=== PATIENT | female | born 1945 | race Caucasian/White ===

== ENCOUNTER 2016-06-17 06:26 | Inpatient (IN) | payer OTHER, BC ==
[~2016-06-17] VITALS: Ht 157.5 cm; Wt 115.4 kg
[~2016-06-17 06:26] MED LIST: ALLEGRA ALLERG180 MG PO; ALPHAGAN P100 DROP/5 BOTH EYES; APRESOLINE25 MG PO; ASCORBIC ACID500 M3 PO; ASPIRIN EC325 MG PO; AZELASTINE137 MCG/0. BOTH NARES; AZO CRANBERRY250 MG PO; BACTRIM,SEPT1 TABLET PO; BIOTIN10000 MCG PO; BIOTIN2500 MCG PO; BIOTIN800 MCG PO; Biotin PO; CARDURA4 MG PO; CINNABETIC1 CAPSUL1 PO; CINNAMON PO; CINNAMON500 MG PO; CLINDAMYCIN HC300 MG PO; CO Q-10200 MG PO; COLACE100 MG PO; COLACE50 MG PO; CONSTULOSE10 GM/15 M PO; COQ PO; CRANBERRY300 MG PO; CYANOCOBALAM1000 MCG PO; CYMBALTA30 MG PO; Cranberry PO; DHA100 MG PO; DULERA 100 MCG/13 GM IH; ESTROGEN-METHY1 EAC2 PO; ESTROGEN-METHY1 EAC3 PO; FISH OIL 1,2001 EAC4 PO; FISH OIL300 MG PO; FLEXERIL5 MG PO; FLINTSTONES M100 MCG PO; FLONASE16 G1 BOTH NARES; FOLIC ACID1 MG PO; Fish Oil PO; HUMALOG100 UNIT/1 SC; HUMALOG100 UNIT/2 SC; HYDROCORTISONE30 G2 TP; KAYEXALATE15 GM/60 M PO; KIONEX15 GM/60 M PO; L-ARGININE500 MG PO; LACTULOSE10 GM/151 PO; LANTUS 3 M100 UNITS1 SC; LASIX20 MG PO; LASIX40 MG PO; LEUCOVORIN CALCI5 MG PO; LIDODERM 5% P1 PATCH TD; LO-DOSE ASPIRIN81 M1 PO; LORTAB 5-325 M1 EACH PO; MACROBID100 MG PO; METHOTREXATE PO; METHOTREXATE2.5 MG PO; MYRBETRIQ50 MG PO; Myrbetriq PO; NAPROXEN500 MG PO; NOVOLOG PE100 UNITS/ SC; OXYCODONE HCL5 MG PO; PAXIL30 MG PO; PRADAXA75 MG PO; PREVACID30 MG PO; PROAIR HFA8.5 GM IH; PROBIOTIC1 EAC1 PO; PROVENTIL2.5 MG/3 M IH; RED WINE EXTRA1 EAC1 PO; REMICADE10 MG/ML; REMICADE10 MG/ML IV; REVATIO20 MG PO; ROSUVASTATIN CA10 MG PO; Revatio PO; SENNA-TIME S T1 EACH PO; SIMVASTATIN PO; SIMVASTATIN40 MG PO; SINGULAIR10 MG PO; SYNTHROID125 MCG PO; SYNTHROID75 MCG PO; TEGRETOL200 MG PO; TOUJEO SOL300 UNIT/1 SC; TRAMADOL HCL300 MG PO; TRICOR48 MG PO; TYLENOL EXTRA500 MG PO; ULTRA FLORA PL1 EACH PO; ULTRAM50 MG PO; VERAMYST10 GM BOTH NARES; VITAMIN B-122500 MCG SL; VITAMIN B-6100 MG PO; VITAMIN B-6250 MG PO; VITAMIN B-650 MG PO; VITAMIN B12-FO1 EACH PO; VITAMIN D31000 UNI2 PO; Vitamin B-12 PO; XALATAN2.5 ML BOTH EYES; XANAX0.5 MG PO; ZOCOR40 MG PO; [UNRECOGNIZED DRUG - OTHER] PO
[2016-06-17 07:14] LABS: POINT-OF-CARE METER ID UU14174212
[2016-06-17] MEDS ORDERED: LASIX20 MG PO (07:27)
[2016-06-17] MEDS ORDERED: LASIX40 MG PO (07:28)
[2016-06-17 07:47] VITALS: BP 151/67
[2016-06-17 11:50] LABS: POINT-OF-CARE METER ID UU13113675
[2016-06-17 13:47] VITALS: BP 146/63
[2016-06-17 16:42] LABS: POINT-OF-CARE METER ID UU13113712
[2016-06-17 20:10] VITALS: BP 138/68
[2016-06-17 22:19] LABS: POINT-OF-CARE METER ID UU13113712
[2016-06-17 23:50] VITALS: BP 125/58
[2016-06-18 03:30] VITALS: BP 139/58
[2016-06-18 06:30] LABS: HEMATOCRIT 34.6 % (36.0-46.0)
[2016-06-18 07:34] VITALS: BP 131/58
[2016-06-18 08:01] LABS: POINT-OF-CARE METER ID UU13113712
[2016-06-18 12:00] VITALS: BP 132/64
[2016-06-18 12:16] LABS: POINT-OF-CARE METER ID UU13113712
[2016-06-18 16:24] VITALS: BP 121/54
[2016-06-18 17:27] LABS: POINT-OF-CARE METER ID UU13113712
[2016-06-18 20:27] VITALS: BP 138/56
[2016-06-18 21:46] LABS: POINT-OF-CARE METER ID UU13113712
[2016-06-19] VITALS (7 sets, daily range): BP systolic 120–135; BP diastolic 55–60
[2016-06-19 07:07] LABS: HEMATOCRIT 32.1 % (36.0-46.0); MCV 96.4 FL (83-99)
[2016-06-19 07:45] LABS: POINT-OF-CARE METER ID UU13113712
[2016-06-19 11:55] LABS: POINT-OF-CARE METER ID UU13113712
[2016-06-19 16:57] LABS: POINT-OF-CARE METER ID UU13113712
[2016-06-20 04:01] VITALS: BP 141/62
[2016-06-20 07:31] LABS: POINT-OF-CARE METER ID UU13113712
[2016-06-20 08:00] VITALS: BP 145/63
[2016-06-20] MEDS ORDERED: SENNA PLUS TAB1 EACH PO (08:04)
[2016-06-20] MEDS ORDERED: LIDOCAINE700 MG TD (08:04)
[2016-06-20] MEDS ORDERED: CELECOXIB200 MG PO (08:04)
[2016-06-20 11:27] LABS: POINT-OF-CARE METER ID UU13113712
[2016-06-20 12:05] VITALS: BP 122/54
[2016-06-20] MEDS ORDERED: ROXICODONE15 MG PO (13:41)
[2016-06-20] MEDS ORDERED: CONSTULOSE10 GM/15 M PO (15:28)
[2016-06-20] MEDS ORDERED: ADVAIR HFA120 INHALA IH (16:44)
[2016-06-20] MEDS ORDERED: PRAVASTATIN SOD80 MG PO (16:47)
== END 2016-06-20 12:38 | DRG 470 ==
LOC: 3WEST 06:26 → 2SOUTH 06:26 → 3WEST 13:54 → 2SOUTH 15:19 → 3WEST 06-20 12:38
PROVIDERS: Orthopaedic Surgery
PROC: 0SRD0J9 Replacement of Left Knee Joint with Synthetic Substitute, Cemented, Open Approach (ICD-10-PCS; principal; 2016-06-17)
DX: M17.12 Unilateral primary osteoarthritis, left knee (principal); Z68.42 Body mass index [BMI] 45.0-49.9, adult; J44.9 Chronic obstructive pulmonary disease, unspecified; I48.91 Unspecified atrial fibrillation; E66.9 Obesity, unspecified; Z91.040 Latex allergy status; Z88.0 Allergy status to penicillin; Z88.1 Allergy status to other antibiotic agents; Z79.4 Long term (current) use of insulin; R80.9 Proteinuria, unspecified; E03.9 Hypothyroidism, unspecified; I10 Essential (primary) hypertension; J45.909 Unspecified asthma, uncomplicated; E11.3599 Type 2 diabetes mellitus with proliferative diabetic retinopathy without macular edema, unspecified eye
CPT/HCPCS: 36415; 80053; 80061; 82043; 82570; 82948; 83036; 85014; 85018; 86850; 86900; 86901; 94640; 94640 76; 94660; 99202; C1713; J0131; J0690; J1815; J1885; J2250; J2795; J7030; J7050; J8610; L1820

== ENCOUNTER 2016-06-20 11:31 | Inpatient (IN) | payer OTHER, BC ==
[~2016-06-20] VITALS: Ht 157.5 cm; Wt 115.3 kg
[~2016-06-20 11:31] MED LIST changes: +CELECOXIB200 MG PO; +LIDOCAINE700 MG TD; +SENNA PLUS TAB1 EACH PO
[2016-06-20 12:58] VITALS: BP 122/54
[2016-06-20] MEDS ORDERED: ROXICODONE15 MG PO (13:41)
[2016-06-20 15:20] VITALS: BP 146/63
[2016-06-20] MEDS ORDERED: CONSTULOSE10 GM/15 M PO (15:28)
[2016-06-20 16:40] LABS: POINT-OF-CARE METER ID UU14174215
[2016-06-20] MEDS ORDERED: ADVAIR HFA120 INHALA IH (16:44)
[2016-06-20] MEDS ORDERED: PRAVASTATIN SOD80 MG PO (16:47)
[2016-06-20 21:30] LABS: POINT-OF-CARE METER ID UU13113720
[2016-06-20 22:17] VITALS: BP 135/62
[2016-06-21 05:37] VITALS: BP 138/63
[2016-06-21 06:02] LABS: HEMATOCRIT 31.6 % (36.0-46.0); MCH 31.6 PG (29.0-34.0); MCHC 32.6 G/DL (30.0-36.0); MCV 96.9 FL (83-99); MEAN PLAT.VOLUME 10.7 uM^3 (9.5-12.4); PLATELET COUNT 165 K/uL (156-360); RBC DIS.WIDTH-CV 13.5 % (11.8-14.6); RED BLOOD COUNT 3.26 M/uL (3.80-5.20)
[2016-06-21 06:25] LABS: ALKALINE PHOSPHATASE 61 IU/L (3-129); ANION GAP 8 MEQ/L (2-14); CHLORIDE 101 MEQ/L (99-109); GFR ESTIMATE (CALCULATED) 39 mL/min/; GLUCOSE 174 mg/dL (70-99); POTASSIUM 4.4 MEQ/L (3.7-5.4); SAMPLE HEMOLYSIS CHECK 0; SAMPLE ICTERIC CHECK 0; SAMPLE LIPEMIA CHECK 0; SODIUM 140 MEQ/L (136-147); TOTAL BILIRUBIN 0.4 MG/DL (0.0-1.0); UREA NITROGEN (BUN) 30 mg/dL (9-23)
[2016-06-21 07:15] LABS: POINT-OF-CARE METER ID UU14174215; POINT-OF-CARE USER ID AHSSSJB31
[2016-06-21 11:44] LABS: POINT-OF-CARE METER ID UU14174215; POINT-OF-CARE USER ID AHSSSJB31
[2016-06-21 15:29] VITALS: BP 127/59
[2016-06-21 17:17] LABS: POINT-OF-CARE METER ID UU14174215
[2016-06-21 21:30] LABS: POINT-OF-CARE METER ID UU14174215
[2016-06-22 04:49] VITALS: BP 145/67
[2016-06-22 07:02] LABS: POINT-OF-CARE METER ID UU14174215
[2016-06-22 11:28] LABS: POINT-OF-CARE METER ID UU14174215
[2016-06-22 15:57] VITALS: BP 147/64
[2016-06-22 16:29] LABS: POINT-OF-CARE METER ID UU14174215
[2016-06-22 21:16] LABS: POINT-OF-CARE METER ID UU14174215
[2016-06-23 05:27] VITALS: BP 154/67
[2016-06-23 07:35] LABS: POINT-OF-CARE METER ID UU14174215; POINT-OF-CARE USER ID AHSSSJB31
[2016-06-23 11:49] LABS: POINT-OF-CARE METER ID UU14174215; POINT-OF-CARE USER ID AHSSSJB31
[2016-06-23 15:00] VITALS: BP 129/60
[2016-06-23 16:49] LABS: POINT-OF-CARE METER ID UU14174215
[2016-06-23 21:11] LABS: POINT-OF-CARE METER ID UU13113720
[2016-06-24 05:14] VITALS: BP 154/80
[2016-06-24 07:18] LABS: POINT-OF-CARE METER ID UU13113720
[2016-06-24 11:45] LABS: POINT-OF-CARE METER ID UU14174215
[2016-06-24 15:13] VITALS: BP 127/60
[2016-06-24 16:14] LABS: POINT-OF-CARE METER ID UU14174215
[2016-06-24 21:36] LABS: POINT-OF-CARE METER ID UU13113720
[2016-06-25 05:25] LABS: EOSINOPHIL COUNT 0.2 K/uL (0-0.3); HEMATOCRIT 34.6 % (36.0-46.0); IMMATURE GRANULOCYTE (%) 0.5 % (0.0-0.7); LYMPHOCYTE COUNT 2.1 K/uL (1.0-2.8); MCH 31.8 PG (29.0-34.0); MCHC 32.9 G/DL (30.0-36.0); MCV 96.4 FL (83-99); MONOCYTE (%) 10.4 % (3-12); MONOCYTE COUNT 0.6 K/uL (0-0.8); NEUTROPHIL (%) 47.2 % (45-76); NEUTROPHIL COUNT 2.6 K/uL (1.8-6.4); RBC DIS.WIDTH-CV 13.4 % (11.8-14.6); RBC DIS.WIDTH-SD 46.7 % (39-53); RED BLOOD COUNT 3.59 M/uL (3.80-5.20); WHITE BLOOD COUNT 5.6 K/uL (4.1-10.2)
[2016-06-25 05:29] VITALS: BP 163/68
[2016-06-25 05:56] LABS: MEAN PLAT.VOLUME 10.9 uM^3 (9.5-12.4)
[2016-06-25 05:57] LABS: PLATELET COUNT 243 K/uL (156-360)
[2016-06-25 06:11] LABS: ALKALINE PHOSPHATASE 70 IU/L (3-129); ANION GAP 10 MEQ/L (2-14); CHLORIDE 100 MEQ/L (99-109); GFR ESTIMATE (CALCULATED) 36 mL/min/; GLUCOSE 169 mg/dL (70-99); POTASSIUM 4.4 MEQ/L (3.7-5.4); SAMPLE HEMOLYSIS CHECK 0; SAMPLE ICTERIC CHECK 0; SAMPLE LIPEMIA CHECK 0; SODIUM 140 MEQ/L (136-147); UREA NITROGEN (BUN) 39 mg/dL (9-23)
[2016-06-25 06:13] LABS: TOTAL BILIRUBIN 0.5 MG/DL (0.0-1.0)
[2016-06-25 07:15] LABS: POINT-OF-CARE METER ID UU13113720
[2016-06-25 11:25] LABS: POINT-OF-CARE METER ID UU13113720
[2016-06-25 16:44] LABS: POINT-OF-CARE METER ID UU13113720
[2016-06-25 16:45] VITALS: BP 159/72
[2016-06-25 20:52] LABS: POINT-OF-CARE METER ID UU13113720; POINT-OF-CARE USER ID 610211320
[2016-06-26 05:31] VITALS: BP 147/63
[2016-06-26 07:15] LABS: POINT-OF-CARE METER ID UU13113720; POINT-OF-CARE USER ID AHSSSJB31
[2016-06-26 11:40] LABS: POINT-OF-CARE METER ID UU13113720; POINT-OF-CARE USER ID AHSSSJB31
[2016-06-26 15:27] VITALS: BP 146/67
[2016-06-26 16:36] LABS: POINT-OF-CARE METER ID UU13113720
[2016-06-26 21:28] LABS: POINT-OF-CARE METER ID UU13113720
[2016-06-27 05:04] VITALS: BP 137/60
[2016-06-27 07:40] LABS: POINT-OF-CARE METER ID UU13113720
[2016-06-27 12:01] LABS: POINT-OF-CARE METER ID UU13113720
[2016-06-27 15:00] VITALS: BP 126/59
[2016-06-27 17:06] LABS: POINT-OF-CARE METER ID UU13113720
[2016-06-27 21:55] LABS: POINT-OF-CARE METER ID UU13113720
[2016-06-28 05:42] VITALS: BP 140/62
[2016-06-28 08:13] LABS: POINT-OF-CARE METER ID UU13113720; POINT-OF-CARE USER ID AHSSSJB31
[2016-06-28 09:15] VITALS: BP 124/64
[2016-06-28] MEDS ORDERED: CELECOXIB200 MG PO (10:17)
[2016-06-28] MEDS ORDERED: TYLENOL REGULA325 MG PO (10:17)
== END 2016-06-28 11:00 | DRG 560 ==
LOC: 3WEST 11:31
PROVIDERS: Physical Medicine & Rehabilitation Pain Medicine; Psychiatry & Neurology Neurology
PROC: F07M0ZZ Range of Motion and Joint Mobility Treatment of Musculoskeletal System - Whole Body (ICD-10-PCS; principal; 2016-06-20)
DX: Z47.1 Aftercare following joint replacement surgery (principal); G89.18 Other acute postprocedural pain; Z96.652 Presence of left artificial knee joint; F33.9 Major depressive disorder, recurrent, unspecified; D62 Acute posthemorrhagic anemia; Z68.42 Body mass index [BMI] 45.0-49.9, adult; R26.2 Difficulty in walking, not elsewhere classified; E66.9 Obesity, unspecified; E11.9 Type 2 diabetes mellitus without complications; I10 Essential (primary) hypertension; I50.9 Heart failure, unspecified; J44.9 Chronic obstructive pulmonary disease, unspecified; F41.9 Anxiety disorder, unspecified; I27.2 Other secondary pulmonary hypertension; I25.10 Atherosclerotic heart disease of native coronary artery without angina pectoris; G47.30 Sleep apnea, unspecified; E03.9 Hypothyroidism, unspecified; J45.909 Unspecified asthma, uncomplicated; I48.2 Chronic atrial fibrillation; Z91.040 Latex allergy status
CPT/HCPCS: 80053; 82948; 85025; 85027; 93971; 94640 76; 97110 GO; 97530 GP

== ENCOUNTER 2016-09-20 15:00 | Emergency (ER) | payer OTHER, BC ==
[~2016-09-20] VITALS: Ht 157.5 cm; Wt 113.0 kg
[~2016-09-20 15:00] MED LIST changes: +ADVAIR HFA120 INHALA IH; +PRAVASTATIN SOD80 MG PO; +ROXICODONE15 MG PO; +TYLENOL REGULA325 MG PO
[2016-09-20 17:25] LABS: EOSINOPHIL (%) 0.3 % (0-5); HEMATOCRIT 35.9 % (36.0-46.0); IMMATURE GRANULOCYTE (%) 0.5 % (0.0-0.7); LYMPHOCYTE COUNT 1.2 K/uL (1.0-2.8); MCH 30.3 PG (29.0-34.0); MCHC 32.6 G/DL (30.0-36.0); MEAN PLAT.VOLUME 9.8 uM^3 (9.5-12.4); MONOCYTE (%) 4.5 % (3-12); MONOCYTE COUNT 0.4 K/uL (0-0.8); NEUTROPHIL (%) 80.3 % (45-76); PLATELET COUNT 180 K/uL (156-360); RBC DIS.WIDTH-CV 14.1 % (11.8-14.6); RBC DIS.WIDTH-SD 47.1 % (39-53); RED BLOOD COUNT 3.86 M/uL (3.80-5.20)
[2016-09-20 17:32] LABS: WHITE BLOOD COUNT 8.7 K/uL (4.1-10.2)
[2016-09-20 17:36] LABS: INTER. NORMALIZED RATIO 1.1; PROTHROMBIN TIME 11.1 (9.2-11.2)
[2016-09-20 17:47] LABS: CHLORIDE 108 mEq/L (99-109); POTASSIUM 4.2 mEq/L (3.7-5.4); SODIUM 144 mEq/L (136-147)
[2016-09-20 17:48] LABS: GLUCOSE 145 mg/dL (70-99)
[2016-09-20 17:50] LABS: ANION GAP 10 MEQ/L (2-14)
[2016-09-20 17:52] LABS: GFR ESTIMATE (CALCULATED) 39 mL/min/
[2016-09-20 17:53] LABS: UREA NITROGEN (BUN) 27 mg/dL (9-23)
[2016-09-20 20:34] LABS: POINT-OF-CARE METER ID UU14100415
[2016-09-20 22:25] VITALS: BP 149/62
== END 2016-09-20 22:29 | disposition home or self-care (01) ==
LOC: EME 15:00
PROVIDERS: Emergency Medicine
DX: S80.01XA Contusion of right knee, initial encounter (principal); W01.0XXA Fall on same level from slipping, tripping and stumbling without subsequent striking against object, initial encounter; J45.909 Unspecified asthma, uncomplicated; J44.9 Chronic obstructive pulmonary disease, unspecified; K21.9 Gastro-esophageal reflux disease without esophagitis; Z96.651 Presence of right artificial knee joint
CPT/HCPCS: 73564; 73700; 80048; 82948; 85025; 85610; 85730; 86900; 86901; 99281; 99285; J3010; J7050

== ENCOUNTER 2017-02-10 07:32 | Emergency (ER) | payer OTHER, BC ==
[~2017-02-10] VITALS: Ht 161.3 cm; Wt 116.5 kg
[2017-02-10] MEDS ORDERED: TYLENOL WITH C1 EACH PO (12:29)
[2017-02-10 13:06] LABS: POINT-OF-CARE METER ID UU13113747
[2017-02-10 13:07] VITALS: BP 120/64
== END 2017-02-10 13:11 | disposition home or self-care (01) ==
LOC: EME 07:32
PROVIDERS: Emergency Medicine
PROC: 0RSJXZZ Reposition Right Shoulder Joint, External Approach (ICD-10-PCS; principal; 2017-02-10)
DX: S43.004A Unspecified dislocation of right shoulder joint, initial encounter (principal); S09.90XA Unspecified injury of head, initial encounter; W01.0XXA Fall on same level from slipping, tripping and stumbling without subsequent striking against object, initial encounter; J44.9 Chronic obstructive pulmonary disease, unspecified; I50.9 Heart failure, unspecified; K21.9 Gastro-esophageal reflux disease without esophagitis; N18.9 Chronic kidney disease, unspecified; Z96.612 Presence of left artificial shoulder joint; Z96.659 Presence of unspecified artificial knee joint; Z91.040 Latex allergy status; Z88.0 Allergy status to penicillin
CPT/HCPCS: 70450; 73030; 82948; 99281; 99285; J2270

== ENCOUNTER 2017-05-14 15:37 | Inpatient (IN) | payer OTHER, BC ==
[~2017-05-14] VITALS: Ht 157.5 cm; Wt 116.1 kg
[~2017-05-14 15:37] MED LIST changes: +TYLENOL WITH C1 EACH PO
[2017-05-14 16:43] LABS: HEMATOCRIT 37.4 % (36.0-46.0); HEMOGLOBIN 12.8 G/DL (11.9-15.5); MCH 32.1 PG (29.0-34.0); MCHC 34.2 G/DL (30.0-36.0); MCV 93.7 FL (83-99); PLATELET COUNT 160 K/uL (156-360); RBC DIS.WIDTH-CV 14.3 % (11.8-14.6); RED BLOOD COUNT 3.99 M/uL (3.80-5.20)
[2017-05-14 16:50] LABS: INTER. NORMALIZED RATIO 1.1
[2017-05-14 16:53] LABS: PTT 34.5 SEC (25-37)
[2017-05-14 16:55] LABS: ALBUMIN 3.7 g/dL (3.2-4.8); CHLORIDE 104 mEq/L (99-109); POTASSIUM 4.3 mEq/L (3.7-5.4); SODIUM 135 mEq/L (136-147)
[2017-05-14 16:57] LABS: GLUCOSE 156 mg/dL (70-99)
[2017-05-14 16:58] LABS: TOTAL PROTEIN 6.7 g/dL (6.4-8.3)
[2017-05-14 16:59] LABS: TOTAL BILIRUBIN 0.5 mg/dL (0.0-1.0)
[2017-05-14 17:01] LABS: ALKALINE PHOSPHATASE 122 IU/L (3-129); CREATININE 1.4 mg/dL (0.6-1.3); GFR ESTIMATE (CALCULATED) 39 mL/min/
[2017-05-14 17:02] LABS: UREA NITROGEN (BUN) 28 mg/dL (9-23)
[2017-05-14 17:03] LABS: AST (GOT) 27 IU/L (2-34)
[2017-05-14 17:04] LABS: ALT (GPT) 27 IU/L (3-49); TROP-I INTERPRETATION NEGATIVE
[2017-05-14] MEDS ORDERED: TEGRETOL200 MG PO (18:36)
[2017-05-14] MEDS ORDERED: COLACE100 MG PO (18:39)
[2017-05-14] MEDS ORDERED: HUMALOG100 UNIT/2 SC (18:44)
[2017-05-14] MEDS ORDERED: TRAMADOL HCL E300 M1 PO (18:47)
[2017-05-14] MEDS ORDERED: LIDODERM 5% P1 PATCH TD (18:47)
[2017-05-14] MEDS ORDERED: ULTRAM50 MG PO (18:48)
[2017-05-14] MEDS ORDERED: MOBIC15 MG PO (18:48)
[2017-05-14] MEDS ORDERED: FISH OIL 1,4001 EACH PO (18:53)
[2017-05-14 22:32] LABS: APPEARANCE SL.HAZY ((CLEAR)); BILIRUBIN NEGATIVE; BLOOD NEGATIVE; COLOR YELLOW ((YELLOW)); GLUCOSE (STRIP) 50; KETONES 5; LEUKOCYTES NEGATIVE; NITRITE NEGATIVE; PROTEIN (STRIP) 100; SPECIFIC GRAVITY 1.011 (1.000-1.030); UROBILINOGEN 0.2 MG/DL (0.2-1.0)
[2017-05-14 22:39] LABS: BACTERIA NONE SEEN /HPF; EPITHELIAL CELLS RARE /HPF; HYALINE CASTS 0-5 /LPF; MUCUS TRACE /LPF; RED BLOOD CELLS 0-5 /HPF (0-5); UCUL ADDED? NO; WHITE BLOOD CELLS 0-5 /HPF (0-5)
[2017-05-14 23:05] VITALS: BP 144/67
[2017-05-15 03:12] VITALS: BP 138/64
[2017-05-15 07:15] LABS: HEMATOCRIT 35.5 % (36.0-46.0); HEMOGLOBIN 11.5 G/DL (11.9-15.5); MCH 30.7 PG (29.0-34.0); MCHC 32.4 G/DL (30.0-36.0); MCV 94.9 FL (83-99); PLATELET COUNT 136 K/uL (156-360); RBC DIS.WIDTH-CV 13.9 % (11.8-14.6); RBC DIS.WIDTH-SD 48.5 % (39-53); RED BLOOD COUNT 3.74 M/uL (3.80-5.20); WHITE BLOOD COUNT 10.4 K/uL (4.1-10.2)
[2017-05-15 07:23] VITALS: BP 129/60
[2017-05-15 07:57] LABS: CHLORIDE 100 MEQ/L (99-109); CREATININE 1.5 MG/DL (0.6-1.3); GFR ESTIMATE (CALCULATED) 36 mL/min/; POTASSIUM 4.4 MEQ/L (3.7-5.4); SODIUM 136 MEQ/L (136-147); UREA NITROGEN (BUN) 34 mg/dL (9-23)
[2017-05-15 08:02] LABS: GLUCOSE 406 mg/dL (70-99)
[2017-05-15 11:47] VITALS: BP 128/56
[2017-05-15 15:30] VITALS: BP 127/60
[2017-05-15 20:17] VITALS: BP 114/55
[2017-05-15 23:10] VITALS: BP 104/52
[2017-05-16 03:56] VITALS: BP 102/62
[2017-05-16 06:29] LABS: BASOPHIL (%) 0.2 % (0-1); EOSINOPHIL (%) 1.2 % (0-5); EOSINOPHIL COUNT 0.1 K/uL (0-0.3); HEMATOCRIT 34.1 % (36.0-46.0); HEMOGLOBIN 11.3 G/DL (11.9-15.5); IMMATURE GRANULOCYTE (%) 0.4 % (0.0-0.7); LYMPHOCYTE (%) 20.3 % (15-42); LYMPHOCYTE COUNT 2.1 K/uL (1.0-2.8); MCH 31.7 PG (29.0-34.0); MCHC 33.1 G/DL (30.0-36.0); MCV 95.5 FL (83-99); MONOCYTE (%) 5.4 % (3-12); MONOCYTE COUNT 0.6 K/uL (0-0.8); NEUTROPHIL (%) 72.5 % (45-76); NEUTROPHIL COUNT 7.6 K/uL (1.8-6.4); PLATELET COUNT 156 K/uL (156-360); RBC DIS.WIDTH-CV 14.3 % (11.8-14.6); RBC DIS.WIDTH-SD 50.1 % (39-53); RED BLOOD COUNT 3.57 M/uL (3.80-5.20); WHITE BLOOD COUNT 10.4 K/uL (4.1-10.2)
[2017-05-16 07:09] LABS: CHLORIDE 104 MEQ/L (99-109); CREATININE 1.5 MG/DL (0.6-1.3); GFR ESTIMATE (CALCULATED) 36 mL/min/; POTASSIUM 3.9 MEQ/L (3.7-5.4); SODIUM 141 MEQ/L (136-147); UREA NITROGEN (BUN) 50 mg/dL (9-23)
[2017-05-16 07:13] LABS: GLUCOSE 42 mg/dL (70-99)
[2017-05-16 07:32] VITALS: BP 105/58
[2017-05-16 15:59] VITALS: BP 118/58
[2017-05-16 19:45] VITALS: BP 126/61
[2017-05-16 22:33] VITALS: BP 122/58
[2017-05-17 08:32] VITALS: BP 123/58
[2017-05-17 11:47] VITALS: BP 135/57
[2017-05-17 15:26] VITALS: BP 154/67
[2017-05-18 00:09] VITALS: BP 162/82
[2017-05-18 06:56] LABS: CHLORIDE 101 MEQ/L (99-109); CREATININE 1.3 MG/DL (0.6-1.3); GFR ESTIMATE (CALCULATED) 43 mL/min/; POTASSIUM 4.2 MEQ/L (3.7-5.4); SODIUM 142 MEQ/L (136-147); UREA NITROGEN (BUN) 35 mg/dL (9-23)
[2017-05-18 06:57] LABS: GLUCOSE 92 mg/dL (70-99)
[2017-05-18 07:32] VITALS: BP 125/60
[2017-05-18] MEDS ORDERED: TOUJEO SOL300 UNIT/1 SC (12:37)
[2017-05-18] MEDS ORDERED: LEVAQUIN500 MG PO (12:39)
[2017-05-18] MEDS ORDERED: PREDNISONE10 MG PO (12:49)
[2017-05-18] MEDS ORDERED: LASIX20 MG PO (12:59)
== END 2017-05-18 14:35 | disposition home health service (06) | DRG 191 ==
LOC: EME 15:37 → 5EAST 20:17 → EDOF 20:17 → ENRESERV 20:21 → 5EAST 22:32
PROVIDERS: Hospitalist; Student in an Organized Health Care Education/Training Program
DX: J44.1 Chronic obstructive pulmonary disease with (acute) exacerbation (principal); J44.0 Chronic obstructive pulmonary disease with (acute) lower respiratory infection; J20.9 Acute bronchitis, unspecified; I13.0 Hypertensive heart and chronic kidney disease with heart failure and stage 1 through stage 4 chronic kidney disease, or unspecified chronic kidney disease; E11.22 Type 2 diabetes mellitus with diabetic chronic kidney disease; N18.9 Chronic kidney disease, unspecified; I50.9 Heart failure, unspecified; I27.20 Pulmonary hypertension, unspecified; E11.65 Type 2 diabetes mellitus with hyperglycemia; I35.0 Nonrheumatic aortic (valve) stenosis; I48.0 Paroxysmal atrial fibrillation; I48.2 Chronic atrial fibrillation; D64.9 Anemia, unspecified; M79.662 Pain in left lower leg; M79.89 Other specified soft tissue disorders; R53.1 Weakness; K21.9 Gastro-esophageal reflux disease without esophagitis; E78.5 Hyperlipidemia, unspecified; R32 Unspecified urinary incontinence; H40.9 Unspecified glaucoma; E66.01 Morbid (severe) obesity due to excess calories; Z68.42 Body mass index [BMI] 45.0-49.9, adult; Z79.01 Long term (current) use of anticoagulants; Z79.4 Long term (current) use of insulin; Z82.49 Family history of ischemic heart disease and other diseases of the circulatory system; Z83.3 Family history of diabetes mellitus; Z95.0 Presence of cardiac pacemaker; Z96.612 Presence of left artificial shoulder joint; Z96.653 Presence of artificial knee joint, bilateral
CPT/HCPCS: 71046; 71250; 80048; 80053; 81003; 82948; 83880; 84484; 85025; 85027; 85610; 85730; 87070; 87205; 93005; 93306; 93970; 94640; 94640 76; 94660; 94799; 97530 GP; 99202; 99281; 99285; J1815; J1940; J2930; J7512